=== PATIENT | male | born 1950 | race Caucasian/White ===

== ENCOUNTER → 2016-11-28 | Outpatient (REF) ==
[~2016-11-28] MED LIST: ASPIRIN 81M81 MG/TA2 PO; CALCIUM 500500 M2 PO; CALTRATE-600 W600 MG PO; CELEBREX 200MG200 MG PO; CEPHALEXIN500 M1 PO; EPA1000 MG PO; FERROUS SU325 MG/TAB PO; FOLIC ACID 40400 MCG PO; KETOROLAC10 MG PO; KLONOPIN 0.5MG0.5 MG PO; KLONOPIN 1MG1 MG PO; MASON NATURAL1200 MG PO; MULTI VITAMINS1 TAB PO; PRILOTC PO; TENORMIN 5050 MG/TAB PO; VITAMIN C500 MG PO; XARELTO10 MG PO; ZOCOR 40MG40 MG PO; ZYRTEC ALLERGY10 MG PO
== END ==
LOC: ZLAB.WCH 15:41
DX: Z01.89 Encounter for other specified special examinations (principal)

== ENCOUNTER 2017-09-07 11:57 | Outpatient (RCR) | payer MEDICARE | END 2017-12-06 | disposition home or self-care (01) | LOC: MKS.ESL.PT | DX: G60.8 Other hereditary and idiopathic neuropathies (principal) ==

== ENCOUNTER → 2017-09-20 | Outpatient (REF) | LOC: ZLAB.WCH 18:11 | DX: Z01.89 Encounter for other specified special examinations (principal) ==

== ENCOUNTER 2017-11-23 12:30 | Outpatient (RCR) | payer MEDICARE, BC | END 2017-12-06 | disposition home or self-care (01) | LOC: MKS.ESL.PT | DX: G60.8 Other hereditary and idiopathic neuropathies (principal); Z98.1 Arthrodesis status | CPT/HCPCS: G8990-GP; G8991-GP ==

== ENCOUNTER → 2018-09-04 | Outpatient (REF) ==
[2018-09-04 16:34] LABS: THYROID STIMULATING HORMONE 2.79 uIU/mL (0.465-4.680)
[2018-09-04 16:47] LABS: PSA-TOTAL 2.08 ng/mL (0-4)
== END ==
LOC: ZLAB.WCH 15:49
PROVIDERS: Psychiatry & Neurology Neurology
DX: Z01.89 Encounter for other specified special examinations (principal)
CPT/HCPCS: G0103

== ENCOUNTER → 2019-10-15 | Outpatient (CLI) | payer MEDICARE, BC | LOC: COL.RAD 11:47 | DX: Z01.812 Encounter for preprocedural laboratory examination (principal); M48.061 Spinal stenosis, lumbar region without neurogenic claudication; M48.02 Spinal stenosis, cervical region; M47.22 Other spondylosis with radiculopathy, cervical region | CPT/HCPCS: A9585 ==

== ENCOUNTER 2021-11-10 13:22 | Outpatient (CLI) | payer MEDICARE, BC ==
[~2021-11-10] VITALS: Ht 175.3 cm; Wt 94.8 kg
[2021-11-10] VITALS (8 sets, daily range): BP systolic 117–186; BP diastolic 85–105; PULSE 54–65; TEMP 97.9
[~2021-11-10 13:22] MED LIST changes: +FISH OIL 500 M1 EAC1 PO; -MASON NATURAL1200 MG PO
[2021-11-10] MEDS ORDERED: ALPHA LIPOIC A200 M2 PO (16:12)
[2021-11-10] MEDS ORDERED: B-12 500 MCG PO (16:12)
[2021-11-10] MEDS ORDERED: COZAAR 25MG25 MG/TAB PO (16:13)
[2021-11-10] MEDS ORDERED: REQUIP 1MG T1 MG/TAB PO (16:13)
[2021-11-10] MEDS ORDERED: LOPRESSOR 225 MG/TAB PO (16:14)
[2021-11-10] MEDS ORDERED: TYLENOL 500MG500 MG PO (16:14)
== END 2021-11-10 16:15 | disposition home or self-care (01) ==
LOC: EUO 13:22
DX: U07.1 COVID-19 (principal); E66.9 Obesity, unspecified; I25.10 Atherosclerotic heart disease of native coronary artery without angina pectoris
CPT/HCPCS: M0247; Q0247

== ENCOUNTER → 2022-01-12 | Outpatient (CLI) | payer MEDICARE, BC ==
[~2022-01-12] MED LIST changes: +ALPHA LIPOIC A200 M2 PO; +B-12 500 MCG PO; +COZAAR 25MG25 MG/TAB PO; +LOPRESSOR 225 MG/TAB PO; +REQUIP 1MG T1 MG/TAB PO; +TYLENOL 500MG500 MG PO
== END ==
LOC: COL.PUL 07:00
DX: R06.00 Dyspnea, unspecified (principal)

== ENCOUNTER → 2022-03-30 | Outpatient (CLI) | payer MEDICARE, BC | LOC: COL.VAS 12:38 | DX: I08.1 Rheumatic disorders of both mitral and tricuspid valves (principal) ==